=== PATIENT | female | born 1950 | race Caucasian/White ===

== ENCOUNTER 2024-07-16 10:07 | Inpatient (IN) | payer MEDICARE, MEDICAID, SELFPAY ==
[2024-07-16] VITALS (76 sets, daily range): BP systolic 95–136; BP diastolic 46–87; PULSE 52–78; RESP 15–39; TEMP 36.5–36.8; O2SAT 85–100
--- NOTE | 2024-07-16 | DI.RAD_ITS ---
Exam(s) XR PORTABLE CHEST AP EXAM: XR PORTABLE CHEST AP CLINICAL HISTORY: pneumonia TECHNIQUE: 2D digital imaging was performed of the chest. One image was obtained. An AP view was ob tained. COMPARISON: No exams were available for comparison FINDINGS: There is overlying monitoring equipment present. MEDIASTINUM: Normal. HEART: Mild cardiomegaly. PULMONARY VASCULATURE: There is pulmonary venous congestion. LUNGS: No focal consolidating infiltrates are present. PLEURAL SPACE: No pleural effusion or pneumothorax. BONE:Within normal limits for the patient's age. OTHER FINDINGS:Normal. IMPRESSION: 1. No focal consolidating infiltrates. 2. Mild cardiomegaly and pulmonary venous congestion. DATA REPOSITORY: RADIATION DOSE DELIVERED:
--- NOTE | 2024-07-16 11:14 | W.PM.HP.N ---
Date of service: 07/16/24 Time of Service: 11:14 Assessment and Plan Assessment and plan (1) Pneumonia: Status: Acute Assessment and plan: continue with vanc and zosyn. Recheck labs cbc/cmp/procalcitonin/esr/crp cxr will be ordered (2) Anemia: Status: Chronic Assessment and plan: stable (3) CVA (cerebral vascular accident): Status: Chronic Assessment and plan: history of cva. (4) CKD (chronic kidney disease): Status: Chronic Assessment and plan: renally dose meds (5) Troponin level elevated: Status: Acute Assessment and plan: recheck levels (6) Diabetes: Status: Chronic History of Present Illness History of Present Illness Chief Complaint: sob Narrative: This is a 74-year-old female with a known history of a CVA with significant morbidity who is currently living at a detention facility and [facility]. Nursing staff noted the patient was having increasing difficulty breathing as well as a fever and hypoxia. She was evaluated in the ED at formerly [facility] and was noted to have pneumonia. Over the ensuing few hours the patient was noted to have hide potentially requiring pressure support with Levophed. Considering of bed crisis the patient was transferred here for further evaluation and treatment. Per my discussion with the family they reiterates this history. They also state that the patient gets pur?ed food but there has been concern about aspiration. Patient's other medical issues include hemiplegia and hemiparesis, chronic kidney disease, chronic A-fib, hypertension, diastolic heart failure, dyslipidemia, urinary retention in the past, hypokalemia. In reviewing medical records from the outlying facility for 8 white count was 9.69 and H&H of 8.5 and 27, INR was 2.6 BUN was 68.5 with creatinine at 1.84, BUN to creatinine ratio 37 potassium was 6.1 flu AMB negative RSV negative COVID-negative. I do not see any radial graphic results. Review of Systems Unobtainable due to mental status PFSH All Active Problems (Updated 07/16/24 @ 11:25 by Kilo Sanchez MD) Diabetes (Chronic) Troponin level elevated (Acute) CKD (chronic kidney disease) (Chronic) CVA (cerebral vascular accident) (Chronic) Anemia (Chronic) Pneumonia (Acute) Social History Smoking risk assessment performed?: No Drug use: Never Substance use type: does not use Housing: fdc Do you feel safe at home: Yes Do you feel safe in your relationship?: Yes Exam Narrative Exam Narrative: Head eyes ears nose and throat: Significant drooping in the left side of her face with very poor dentition Respiratory: Bilateral wheeze with expiration as well as with crackles right greater than left Cardiovascular irregularly irregular no murmur rubs or gallops Abdomen: Soft nontender nondistended bowel sounds active Extremities: No sinus clubbing or edema in reviewing records from outlying institution she was noted to have a stage I decubitus ulcer. Psych: Patient does respond to yes or no questions as well as to verbal stimuli. Results Last Vital Signs Temp 36.6 C 07/16/24 09:00 Pulse 61 07/16/24 10:31 Resp 20 07/16/24 10:31 BP 115/57 L 07/16/24 10:31 Pulse Ox 96 07/16/24 10:31 Time Spent Time spent with Patient: 55-74 minutes Time was spent: preparing to see the patient(eg.review tests), obtaining and/or reviewing separately otained hiistory, ordering medications,tests, procedures, referring, communicating with other health foster care worker, indepentently interpreting results, counseling the patient and care coordination
[2024-07-16] MEDS: Norepinephrine in D5W 8 MG/250 ML BAG 6.563 MG IV (12:00)
[2024-07-16 12:09] LABS: Abs Immature Grans 0.04 10^3/uL (0.0-0.06); Absolute Basophil Count 0.06 10^3/uL (0.0-0.2); Absolute Eosinophil Count 0.23 10^3/uL (0.0-0.7); Absolute Monocyte Count 0.58 10^3/uL (0.1-0.8); Absolute Neutrophil Count 7.67 10^3/uL (1.2-6.7); Basophils % 0.6 %; Eosinophils % 2.5 %; HCT 29.4 % (36.0-46.0); HGB 8.8 g/dL (11.2-15.7); Immature Grans % 0.4 %; Lymphocytes % 7.5 %; MCH 28.4 pg (27.0-33.0); MCHC 29.9 % (32.0-36.0); MCV 95 fL (80-95); Monocytes % 6.3 %; Neutrophils % 82.7 %; Platelet Count 73 10^3/uL (130-400); RDW 17.2 % (11.7-14.6); RDW-SD 60.1 fL; WBC 9.28 10^3/uL (4.4-10.8)
[2024-07-16 12:12] LABS: ESR 23 mm/hr (0-30)
[2024-07-16 12:21] LABS: ALT 17 U/L (14-59); AST 23 U/L (15-37); Albumin 2.4 g/dL (3.4-5.0); Alkaline Phosphatase 83 U/L (46-116); Anion Gap 9.2 mmol/L (3-11); BUN 72 mg/dL (7-18); Bilirubin, Total 0.45 mg/dL (0.2-1.0); CO2 17.8 mmol/L (21.0-32.0); CREATININE 2.1 mg/dL (0.55-1.02); Calcium 8.9 mg/dL (8.5-10.1); Chloride 111 mmol/L (98-107); Estimated GFR 24.12 (mL/min/1.73m2); Glucose 121 mg/dL (74-106); Potassium 5.7 mmol/L (3.5-5.1); Sodium 138 mmol/L (136-145); Total Protein 6.3 g/dL (6.4-8.2)
[2024-07-16 12:28] LABS: Diff Comment PLT Morph Reviewed; MPV 11.4 fL (8.0-11.0); RBC Morphology Normal; Troponin I 291 ng/L (<or=51)
[2024-07-16] MEDS: Enoxaparin 30 MG/0.3 ML SYR SC (12:28)
[2024-07-16 12:31] LABS: Vancomycin, Random 15.4 ug/mL
--- NOTE | 2024-07-16 12:59 | SP_ITS ---
Date of service: 07/16/24 Time of Service: 12:10 Subjective Clinical (Bedside) Swallow Evaluation Speech Language Pathology Referred by: Dr Sanchez Referral Type: Clinical Swallow Evaluation Reason for Referral/HPI: Fariha Arteaga is a 74 yo female who lives in a [facility] care facility in [facility] who was admitted with hypoxia/fever appearing consistent with pneumonia. CXR from [facility] ED reports bilateral infiltrates, CXR completed this morning at [facility] reveals no focal consolidating infiltrates, mild cardiomegaly and pulmonary venous congestion. She presents with PMH significant for CVA approximately 20 years ago with residual aphasia, R hemiplegia, and dysphagia. Per family report this is Fariha's second pneumonia in the past year (last in December 2023) and there was concern prior to this admission for aspiration, with recommendation for MBSS. Family states, swallowing has been hard since the stroke but we think it might be getting worse with age. She is on a Puree/Mildly thick diet at baseline and usually does self-feed with modified utensils/cup. COMPUTER SYSTEMS SECURITY ADMINISTRATOR IMPRESSIONS & RECOMMENDATIONS: Fariha presented today as alert/oriented, answering questions with single words/short phrases, though deconditioned and requesting full feed assist. At time of evaluation she was tolerating nasal cannula with wet/gurgly breathing. She presents with acute on chronic oral pharyngeal dysphagia characterized by R facial droop/labial weakness, lingual discoordination and weakness, discoordinated A-P transport, delayed swallow initiation, and intermittent wet cough. Increased wet cough noted for initial trials though subsided with additional PO- question related to displacement of secretions. Cough strength varied. Overall Fariha is considered a very high risk for aspiration-related illness, especially in the setting of poor oral hygiene (very sparse dentition with evident decay). Anticipate baseline severe dysphagia is exacerbated by deconditioned status and increased respiratory demands. Risks can be mitigated with strict aspiration precautions and diet modifications as listed below. Should patient status/respiratory status decline, recommend low threshold for NPO. Consider MBSS to further assess swallow function as patient returns to baseline. FURTHER COMPUTER SYSTEMS SECURITY ADMINISTRATOR SERVICES: Patient to be followed while on unit. Upon Discharge, [facility] COMPUTER SYSTEMS SECURITY ADMINISTRATOR services recommended Diet Recommendations: SOLIDS:4-Pureed Solids LIQUIDS: 2-Mildly Thick Liquids - Use cup with handle (once pt able to hold) and straw MEDICATIONS: Crushed or whole (if small) in puree RISK MANAGEMENT: HOB bolt upright for all PO, remain upright at least 30 min after Elevate HOB 30 degrees in evening Oral hygiene before/after PO using friction toothbrush/swab on all oral structures as tolerated Level of Assistance/Supervision: 1:1 supervision and assistance with all PO SUBJECTIVE: Patient received alert/awake, lethargic, agreeable to evaluation. Tolerating nasal cannula Pain Reported? None Baseline Swallow Function: Family present at time of evaluation, stating she is on puree/thickened liquid at baseline. Drinks out of 'sippy cup with handle'. Pt reports she uses a straw in the cup. Family reports wet cough with PO is not new. PO Trials Assessed: Ice IDDSI 2 Mildly Thick Liquid IDDSI 4 Puree Solid Oral Mechanism Examination: Sparse lower dentition only- evidence of notably decay. Oral mucosa is dry. Cranial Nerve Assessment: CN V ? Trigeminal Did not assess NT CN VII- Facial Impaired labial strength/coordination/ROM IMPAIRED CN IX ? Glossopharyngeal Unable to view palate. No evidence of nasal secretions UNABLE TO ASSESS CN X ? Vagus Wet/weak voice IMPAIRED CX XII ? Hypoglossal Impaired lingual strength/coordination. ROM WFL IMPAIRED Oral Phase Findings: Anterior leakage from mouth R side - straw helps Difficulty with bolus manipulation Difficulty with a-p transport Mild lingual surface residue, clears with liquid wash though requires oral care for full clearance Pharyngeal Phase Findings: Delayed swallow initiation Reduced hyolaryngeal elevation/excursion Wet cough after swallow - occurred with initial trials then subsided ? ASSESSMENT: Further COMPUTER SYSTEMS SECURITY ADMINISTRATOR Services indicated. Patient to be followed while on unit. Recommendation at Discharge: COMPUTER SYSTEMS SECURITY ADMINISTRATOR Services at Senior Living Facility Suggested Referrals: N/A Recommended Procedures: Consider MBSS for assessment of swallow function in the setting of repeat pna Education Provided to: Patient, Family, Nursing Topics Addressed: Aspiration precautions, COMPUTER SYSTEMS SECURITY ADMINISTRATOR findings/recommendations/ POC PLAN: Frequency: 2-3x/week for 1-2 weeks Goals: [place] Goals: Patient will remain free from aspiration-related illness, malnutrition, and dehydration. Short Term Goals: Patient will tolerate Puree Diet and Mildly thick liquids without overt s/s aspiration across 2/2 visits. Patient will tolerate PO trials for consideration of diet upgrade without overt s/s aspiration across 2/2 visits. COMPUTER SYSTEMS SECURITY ADMINISTRATOR CPT Code: 06872 Clinical Swallowing Evaluation TOTAL TIME: 35 Minutes [id number]
[2024-07-16] MEDS: Lactated Ringers 500 ML 125 ML IV (13:28)
[2024-07-16] MEDS: VANCOMYCIN/WATER (PEG) 750 MG/150 ML BAG 150 MG IVPB (14:30)
[2024-07-16] MEDS: Miconazole 2% Topical Powder 85 GM BTL TP (21:03)
[2024-07-16 22:11] LABS: CRP, High Sensitivity >15.00 mg/L (See Note)
[2024-07-17] VITALS (34 sets, daily range): BP systolic 98–131; BP diastolic 47–74; PULSE 61–89; RESP 15–24; TEMP 36.6–36.7; O2SAT 89–97
[2024-07-17] MEDS: Normal Saline Flush 10 ML SYR IVP ×2 (02:04→15:28)
[2024-07-17 06:04] LABS: Abs Immature Grans 0.03 10^3/uL (0.0-0.06); Absolute Basophil Count 0.02 10^3/uL (0.0-0.2); Absolute Lymphocyte Count 0.85 10^3/uL (1.2-3.4); Absolute Neutrophil Count 3.86 10^3/uL (1.2-6.7); Basophils % 0.3 %; Eosinophils % 10.4 %; HGB 7.6 g/dL (11.2-15.7); Immature Grans % 0.5 %; Lymphocytes % 14.8 %; MCH 28.7 pg (27.0-33.0); MCHC 30.4 % (32.0-36.0); MCV 94 fL (80-95); MPV 13.2 fL (8.0-11.0); Monocytes % 6.9 %; Neutrophils % 67.1 %; RBC 2.65 10^6/uL (3.93-5.22); RDW 17.2 % (11.7-14.6); WBC 5.76 10^3/uL (4.4-10.8)
[2024-07-17 06:21] LABS: ALT 16 U/L (14-59); AST 18 U/L (15-37); Albumin 2.1 g/dL (3.4-5.0); Alkaline Phosphatase 64 U/L (46-116); Anion Gap 7.7 mmol/L (3-11); BUN 73 mg/dL (7-18); Bilirubin, Total 0.31 mg/dL (0.2-1.0); CO2 20.3 mmol/L (21.0-32.0); CREATININE 2.2 mg/dL (0.55-1.02); Calcium 8.7 mg/dL (8.5-10.1); Chloride 112 mmol/L (98-107); Estimated GFR 22.81 (mL/min/1.73m2); Glucose 80 mg/dL (74-106); Potassium 5.1 mmol/L (3.5-5.1); Sodium 140 mmol/L (136-145); Total Protein 5.5 g/dL (6.4-8.2)
[2024-07-17 06:35] LABS: Diff Comment Diff Reviewed; Hypochromasia 1+; Platelet Count 69 10^3/uL (130-400)
--- NOTE | 2024-07-17 09:43 | INITIAL_ITS ---
Date of service: 07/17/24 Time of Service: 09:44 Care Management Initial Assmt Initial Assessment Reason for Hospitalization: Pneumonia Functional Status/Living Situation Patient Presentation: Fariha was lying in bed when CM met with her. She was polite and agreeable to conversation, although a little difficult to understand. Fariha had a major stroke 23 years ago which left her with aphasia and right sided hemiplegia. Fariha informed CM that she lives in a single family home in [place], [place] with her [place]. She shared that she is not ambulatory but is able to transfer from bed to her wheelchair with a stand and pivot motion. She stated that she does not receive any services at home. When asked who helps her with her care she stated that her and children are her caregivers. Fariha does have extensive wounds on her buttocks, some of which have tunneling. A wound consult has been ordered. In actuality, Fariha lives at [facility] in [place], [place]. CM contacted her daughter Chrissy who confirmed that she has been living at [facility] since this past March. Prior to that she had been at home and had caregiver support while there. She became acutely ill in December and was treated at [facility]. From there Fariha went to [facility] and then to another SNF before moving to [place]. Chrissy stated that the family has been pleased with the care she has been receiving there. When CM asked Chrissy if she found Fariha confused, she confirmed that she has been since arriving at [facility]. At baseline she is alert and oriented although the family also has diffi culty understanding her at timed due the aphasia. Fariha was admitted with sepsis and pneumonia. She presented to [facility] but they did not have any beds available so she was transferred to [facility]. Today she stated that she prefers to be at [facility] which is closer to her family. CM explained that there are no tertiary care beds available and that transfer was unlikely as her medical issues can be adequately treated at [facility]. She stated that she understood. Clinically Fariha is slowly improving. Her vital signs are stable and she is maintaining her oxygen saturation at 95-97% on room air. Town of Residence: [place] Resides with: Other (SNF) Significant Other/Family: Out of area (Fariha and her family are from out of the area and live in [facility] Natural Supports: family Employment Status: Disabled Instrumental Activities of Daily Living (ADLs): Requires support with Dishes/food prep, Transportation and Other (ADLs) Medications Medication Management: No Issues/Barriers identified Physical Functioning/Mobility Assistive Device: wheelchair Advance Directives Advance Directives: Do you have an Advance Directive: Y 07/16/24 09:36 AD On File at [facility]: N 07/16/24 09:36 Date Asked 07/16/24 07/16/24 09:36 AD Date Reviewed COLST On File at [facility] COLST Date Scanned Code Status Resuscitation Status DNR/DNI Portal Pt does not currently have a portal and education provided: No Portal Education: Patient declined (not from [facility]) Insurance Coverage/Financial Issues Insurance: Medicare Medicaid Care Team Visit Care Team Role Provider Type Mariya Kenny Primary Care Provider NURSE PRACTITIONER Tara Pugh CARDROOM ATTENDANT Other Providers SPEECH LANGUAGE PATHOLOGIST Alycia Low Other Providers LUMBER CARRIER OPERATOR Graham Preciado, CARDROOM ATTENDANT Other Providers SPEECH LANGUAGE PATHOLOGIST Andreia Brewer Other Providers LUMBER CARRIER OPERATOR Jackie Archer Other Providers SPEECH LANGUAGE PATHOLOGIST Indiana Berger, CARDROOM ATTENDANT Other Providers SPEECH LANGUAGE PATHOLOGIST Christine Clancy Other Providers LUMBER CARRIER OPERATOR Silva Chao, CARDROOM ATTENDANT Other Providers SPEECH LANGUAGE PATHOLOGIST Payton Haro RN Other Providers LUMBER CARRIER OPERATOR Kilo Sanchez MD Admit Provider [facility] STAFF PHYSICIAN Attending Provider Discharge Potential Discharge Needs: Other (return to SNF) Anticipated Barriers to Discharge: None Identified Patient/Family Education Needs: Review discharge instructions, discuss Ask Me Three Transportation: EMS Plan: Anticipate Fariha will be discharged back to [facility] when medically cleared. She will follow up with the facility providers and plan of care and transport via EMS. CM will follow and continue to support discharge planning. Social Determinants of Health Screening Will the Patient Participate in the Screening?: Unable to obtain Do you worry about having a steady place to live?: no Problems where you live: no known problems In the past 12 months, have you had to go without electric, gas, oil or water in your home?: no Have you or anyone in your house had to go without enough food to eat?: no Has lack of transportation kept you from medical appointments or from doing things needed for daily living?: no Has anyone in your life made you feel unsafe or unsupported?: no How hard is it for you to pay for the very basics like food, housing, medical care, and heating? Would you say it is:: Not hard at all Do you want help finding or keeping work or a job?: I do not need or want help If for any reason you need help with day-to-day activities such as bathing, preparing meals, shopping, managing finances, etc., do you get the help you need?: I get all the help I need PFSH All Active Problems (Updated 07/17/24 @ 13:41 by Kilo Sanchez MD) Hyperkalemia (Acute) Dysphagia (Acute) Diabetes (Chronic) Troponin level elevated (Acute) CKD (chronic kidney disease) (Chronic) CVA (cerebral vascular accident) (Chronic) Anemia (Chronic) Pneumonia (Acute) Social History Smoking risk assessment performed?: No Drug use: Never Substance use type: does not use Housing: long term Do you feel safe at home: Yes Do you feel safe in your relationship?: Yes
[2024-07-17] MEDS: Enoxaparin 30 MG/0.3 ML SYR SC (12:43)
--- NOTE | 2024-07-17 13:03 | PGE_ITS ---
Date of Service Date of service: 07/17/24 Time of Service: 13:04 Assessment and Plan Assessment and plan (1) Pneumonia: Status: Acute Assessment and plan: continue with vanc and zosyn. Recheck labs cbc/cmp/procalcitonin/esr/crp cxr will be ordered 07/17/24 Pt remains on vanc/zosyn. WBC wnl and no recorded fever. Recheck labs in am (2) Anemia: Status: Chronic Assessment and plan: stable 07/17/24 Pt with a drop in her Hg from 8.8 to 7.6 over last 24 hours. No need for xfusion at this point but I will do hemcheck of stool as well as PPI. (3) CVA (cerebral vascular accident): Status: Chronic Assessment and plan: history of cva. Medical records indicate pt was on coumadin. When I called the SNF, the staff said Mrs Arteaga was not a pt there. Will reach out to Case Management to see if we can get some clarification. (4) CKD (chronic kidney disease): Status: Chronic Assessment and plan: renally dose meds (5) Troponin level elevated: Status: Acute Assessment and plan: recheck levels (6) Diabetes: Status: Chronic Assessment and plan: Pt on lantus 20units qpm per history. Will try to verify through SNF if possible (7) Dysphagia: Status: Acute Assessment and plan: Diet Recommendations: SOLIDS:4-Pureed Solids LIQUIDS: 2-Mildly Thick Liquids - Use cup with handle (once pt able to hold) and straw MEDICATIONS: Crushed or whole (if small) in puree RISK MANAGEMENT: HOB bolt upright for all PO, remain upright at least 30 min after Elevate HOB 30 degrees in evening Oral hygiene before/after PO using friction toothbrush/swab on all oral structures as tolerated Level of Assistance/Supervision: 1:1 supervision and assistance with all PO (8) Hyperkalemia: Status: Acute Assessment and plan: resolved Subjective Subjective Interval history since last seen: PT seen and examined in the am. NS asking for an order for faustino. POC d/w bedside nurse during ICU huddle Exam Narrative Exam Narrative: Head eyes ears nose and throat: Significant drooping in the right side of her face with very poor dentition Respiratory: Bilateral wheeze with expiration as well as with crackles right greater than left Cardiovascular irregularly irregular no murmur rubs or gallops Abdomen: Soft nontender nondistended bowel sounds active Extremities: No sinus clubbing or edema in reviewing records from outlying institution she was noted to have a stage I decubitus ulcer. Psych: Patient does respond to yes or no questions as well as to verbal stimuli. Objective Last Vital Signs Temp 36.6 C 07/17/24 04:01 Pulse 77 07/17/24 11:31 Resp 17 07/17/24 11:31 BP 128/66 07/17/24 11:01 Pulse Ox 89 L 07/17/24 11:31 Laboratory Results - last 24 hr 07/16/24 07/17/24 11:55 05:00 WBC 5.76 RBC 2.65 L Hgb 7.6 L Hct 25.0 L MCV 94 MCH 28.7 MCHC 30.4 L RDW 17.2 H Plt Count 69 L MPV 13.2 H Immature Gran % 0.5 Neutrophils % 67.1 Lymphocytes % 14.8 Monocytes % 6.9 Eosinophils % 10.4 Basophils % 0.3 Nucleated RBC % 0.0 Absolute Neutrophils 3.86 Absolute Lymphocytes 0.85 L Absolute Monocytes 0.40 Absolute Eosinophils 0.60 Absolute Basophils 0.02 RBC Morphology See Below Hypochromasia 1+ Sodium 140 Potassium 5.1 Chloride 112 H Carbon Dioxide 20.3 L Anion Gap 7.7 BUN 73 H Creatinine 2.2 H Est GFR (CKD-EPI 2020) 22.81 Glucose 80 Calcium 8.7 Total Bilirubin 0.31 AST 18 ALT 16 Alkaline Phosphatase 64 C-React Prot High Sens >15.00 Total Protein 5.5 L Albumin 2.1 L Time Spent with Patient Time Spent with Patient: 25-34 minutes Time was spent: preparing to see the patient(eg.review tests), obtaining and/or reviewing separately otained hiistory, ordering medications,tests, procedures, referring, communicating with other health healthcare management, indepentently interpreting results, counseling the patient and care coordination
[2024-07-17] MEDS: VANCOMYCIN/WATER (PEG) 750 MG/150 ML BAG 150 MG IVPB (15:10)
[2024-07-17] MEDS: Tamsulosin 0.4 MG CAPCR PO (21:12)
[2024-07-17] MEDS: Potassium Chloride 10 MEQ CAPCR 20 MEQ PO (21:12)
[2024-07-17] MEDS: Docusate Sodium 100 MG CAP PO (21:12)
[2024-07-17] MEDS: Carvedilol 3.125 MG TAB PO (21:12)
[2024-07-17] MEDS: Miconazole 2% Topical Powder 85 GM BTL TP (21:29)
[2024-07-17] MEDS: Albuterol/Ipratropium 3 ML UPD VIAL IH (21:30)
[2024-07-17] MEDS: Insulin Glargine 300 UNITS/3 ML PEN 20 UNITS SC (21:44)
--- NOTE | 2024-07-17 23:17 | W.PC.ACHO ---
Registration Status: Primary Language: Preferred Language: Most Recent Vital Signs Temperature 36.7 C 07/17/24 21:00 Temperature Source Temporal Artery Scan 07/17/24 21:00 Pulse 81 07/17/24 21:30 Pulse 78 07/17/24 21:30 Respiratory Rate 22 07/17/24 21:30 Respiratory Effort Normal, Non-Labored 07/16/24 09:00 Respiratory Depth Normal 07/16/24 09:00 Respiratory Pattern Normal 07/16/24 09:00 Blood Pressure 131/72 07/17/24 21:01 Blood Pressure Mean 89 07/17/24 21:01 Blood Pressure Position Supine 07/16/24 09:00 Pulse Oximetry 94 07/17/24 21:30 Oxygen Delivery Method Room Air 07/17/24 21:00 Oxygen Flow Rate 0 07/17/24 21:00 Pain Level 0 07/17/24 22:52 Comment Prior to my shift 07/17/24 06:02 Active Medications Generic Name Dose Route Start Last Admin Trade Name Freq PRN Reason Stop Dose Admin Albuterol/Ipratropium 3 ml 07/17/24 20:00 07/17/24 21:30 Albuterol/Ipratropium 3 Ml Upd Vial IH 3 ml TID PETER Administration Carvedilol 3.125 mg 07/17/24 20:00 07/17/24 21:12 Carvedilol 3.125 Mg Tab PO 3.125 mg BID PETER Administration Docusate Sodium 100 mg 07/16/24 10:07 07/17/24 21:12 Docusate Sodium 100 Mg Cap PO 100 mg TID PRN PRN Administration Enoxaparin Sodium 30 mg 07/16/24 12:00 07/17/24 12:43 Enoxaparin 30 Mg/0.3 Ml Syr SC 30 mg Q24H PETER Administration Piperacillin Sod/Tazobactam 100 mls @ 200 mls/hr 07/16/24 12:00 07/17/24 22:41 Sod 4.5 gm/ Dextrose/Water IVPB Infused Q8H PETER Infusion Vancomycin/PEG/NADA/Lysine/Water 750 mg in 150 mls @ 150 mls/hr 07/16/24 14:00 07/17/24 22:49 Vancocin Injection IVPB Infused Q24H PETER Infusion Insulin Glargine 20 units 07/17/24 20:00 07/17/24 21:44 Insulin Glargine 300 Units/3 Ml Pen SC 20 units QPM PETER Administration Miconazole Nitrate 0 gm 07/16/24 20:00 07/17/24 21:29 Miconazole 2% Topical Powder 85 Gm Btl TP 07/30/24 23:59 1 gm BID PETER Administration Potassium Chloride 20 meq 07/17/24 20:00 07/17/24 21:12 Potassium Chloride 10 Meq Capcr PO 20 meq BID PETER Administration Sodium Chloride 0 ml 07/16/24 23:29 07/17/24 15:28 Normal Saline Flush 10 Ml Syr IVP 10 ml PRN PRN Administration Tamsulosin HCl 0.4 mg 07/17/24 20:00 07/17/24 21:12 Tamsulosin 0.4 Mg Capcr PO 0.4 mg HS PETER Administration IV IV Catheter Type [Left Wrist] Peripheral IV IV Catheter Type [Left Hand] Saline Lock IV Catheter Type [Right Hand] Saline Lock IV Catheter Type [Right Wrist] Saline Lock IV Catheter Type [Left Saline Lock Antecubital] IV Catheter Gauge [Left Wrist] 18 IV Catheter Gauge [Left Hand] 20 IV Catheter Gauge [Right Hand] 20 IV Catheter Gauge [Right Wrist 18 ] IV Catheter Gauge [Left 18 Antecubital] Diagnostics 07/17/24 07/16/24 Range/Units 05:00 11:55 WBC 5.76 (4.4-10.8) 10^3/uL RBC 2.65 L (3.93-5.22) 10^6/uL Hgb 7.6 L (11.2-15.7) g/dL Hct 25.0 L (36.0-46.0) % MCV 94 (80-95) fL MCH 28.7 (27.0-33.0) pg MCHC 30.4 L (32.0-36.0) % RDW 17.2 H (11.7-14.6) % Plt Count 69 L (130-400) 10^3/uL MPV 13.2 H (8.0-11.0) fL Immature Gran % 0.5 % Neutrophils % 67.1 % Lymphocytes % 14.8 % Monocytes % 6.9 % Eosinophils % 10.4 % Basophils % 0.3 % Nucleated RBC % 0.0 (0.0-0.3) % Absolute Neutrophils 3.86 (1.2-6.7) 10^3/uL Absolute Lymphocytes 0.85 L (1.2-3.4) 10^3/uL Absolute Monocytes 0.40 (0.1-0.8) 10^3/uL Absolute Eosinophils 0.60 (0.0-0.7) 10^3/uL Absolute Basophils 0.02 (0.0-0.2) 10^3/uL RBC Morphology See Below Hypochromasia 1+ Sodium 140 (136-145) mmol/L Potassium 5.1 (3.5-5.1) mmol/L Chloride 112 H (98-107) mmol/L Carbon Dioxide 20.3 L (21.0-32.0) mmol/L Anion Gap 7.7 (3-11) mmol/L BUN 73 H (7-18) mg/dL Creatinine 2.2 H (0.55-1.02) mg/dL Est GFR (CKD-EPI 2020) 22.81 (mL/min/1.73m2) Glucose 80 (74-106) mg/dL Calcium 8.7 (8.5-10.1) mg/dL Total Bilirubin 0.31 (0.2-1.0) mg/dL AST 18 (15-37) U/L ALT 16 (14-59) U/L Alkaline Phosphatase 64 (46-116) U/L C-React Prot High Sens >15.00 (See Note) mg/L Total Protein 5.5 L (6.4-8.2) g/dL Albumin 2.1 L (3.4-5.0) g/dL 07/17/24 15:32 Urine Culture - Pending Urine - Cath Becerra Indwelling 07/17/24 14:25 Stl Occult Blood Screen Specimen 3 - Pending Stool [id number] Documentation Fingerstick Glucose Start: 07/17/24 21:35 Freq: Status: Active Protocol: Activity Type Activity Date Activity User E-sign Co-sign Detail Recorded Client Recorded Date Recorded By Document 07/17/24 21:24 BKG DAEMON(5) [id number] 07/17/24 21:35 BKG DAEMON(6) Intake and Output - 24 Hour Total 07/16/24 thru 07/17/24 22:49 Intake Total 1987.735 Output Total 550 Balance 1437.735 Weight 80.1 kg Intake: IV 1387.735 Oral 600 Output: Urine 550 Other: Urine Color Yellow Urine Appearance Cloudy Urine Odor Strong Comment Dry at this time Stool Occult Blood Negative Stool Size Small Stool Characteristics Formed Hard Brown Urinary Catheter Urinary Catheter Date of 07/17/24 Insertion [Urethral (Becerra)] Time of insertion [Urethral ( 14:45 Becerra)] Falls Risk Assessment Contributing Factors Unstable,Impairments 07/16/24 09:00 Tubes/Lines With any additional score 07/16/24 09:00 Gait Evaluation W/any additional score 07/16/24 09:00 Cognition Cognitive impairment 07/16/24 09:00 Fall Total Score 61 07/16/24 09:00 Level of Risk High Risk 07/16/24 09:00 Problems Hyperkalemia (Acute) Dysphagia (Acute) Diabetes (Chronic) Troponin level elevated (Acute) CKD (chronic kidney disease) (Chronic) CVA (cerebral vascular accident) (Chronic) Anemia (Chronic) Pneumonia (Acute) v v v v v v v v v Sending and/or Receiving Nurses: Please use comment section below to note any information pertinent to the patient hand-off not included above. Information / Comments: PNA/Sepsis. Prior CVA with right sided deficit. Insp/Exp wheezes t/o. On RA 94%. Pressure injuries to buttocks. Becerra. Report received from: Christine, all questions asked, answered.
[2024-07-18] VITALS (11 sets, daily range): BP systolic 122–136; BP diastolic 61–72; PULSE 69–82; RESP 5–20; TEMP 36–37.1; O2SAT 95–100
[2024-07-18 06:52] LABS: Abs Immature Grans 0.02 10^3/uL (0.0-0.06); Absolute Basophil Count 0.02 10^3/uL (0.0-0.2); Absolute Eosinophil Count 0.56 10^3/uL (0.0-0.7); Absolute Monocyte Count 0.41 10^3/uL (0.1-0.8); Absolute Neutrophil Count 2.77 10^3/uL (1.2-6.7); Basophils % 0.4 %; HCT 24.4 % (36.0-46.0); HGB 7.7 g/dL (11.2-15.7); Immature Grans % 0.4 %; Lymphocytes % 19.2 %; MCH 29.1 pg (27.0-33.0); MCHC 31.6 % (32.0-36.0); MCV 92 fL (80-95); Monocytes % 8.8 %; Neutrophils % 59.2 %; Platelet Count 75 10^3/uL (130-400); RBC 2.65 10^6/uL (3.93-5.22); RDW-SD 58.1 fL; WBC 4.68 10^3/uL (4.4-10.8)
[2024-07-18 07:29] LABS: ALT 17 U/L (14-59); AST 17 U/L (15-37); Albumin 2.1 g/dL (3.4-5.0); Alkaline Phosphatase 62 U/L (46-116); BUN 61 mg/dL (7-18); Bilirubin, Total 0.44 mg/dL (0.2-1.0); CREATININE 2.4 mg/dL (0.55-1.02); Calcium 8.5 mg/dL (8.5-10.1); Chloride 110 mmol/L (98-107); Estimated GFR 20.55 (mL/min/1.73m2); Glucose 63 mg/dL (74-106); Potassium 5.1 mmol/L (3.5-5.1); Sodium 140 mmol/L (136-145); Total Protein 5.8 g/dL (6.4-8.2)
[2024-07-18 07:33] LABS: Anisocytosis 1+; Diff Comment RBC Morph Reviewed
[2024-07-18 07:34] LABS: Polychromasia Present
[2024-07-18] MEDS: Albuterol/Ipratropium 3 ML UPD VIAL IH ×3 (08:45→20:21)
[2024-07-18] MEDS: Carvedilol 3.125 MG TAB PO ×2 (08:57→19:54)
[2024-07-18] MEDS: Furosemide 40 MG TAB PO (08:57)
[2024-07-18] MEDS: Amoxicillin 875/Clav. 125 TAB PO (08:57)
[2024-07-18] MEDS: Azithromycin 250 MG TAB 500 MG PO (08:57)
[2024-07-18] MEDS: Folic Acid 1 MG TAB PO (08:57)
[2024-07-18] MEDS: amLODIPine 10 MG TAB PO (08:57)
[2024-07-18] MEDS: Multivitamin TAB 1 TAB PO (08:58)
[2024-07-18] MEDS: Allopurinol 100 MG TAB PO (08:58)
[2024-07-18] MEDS: Cholecalciferol (Vitamin D3) 1,000 UNIT TAB 1000 UNITS PO (08:58)
[2024-07-18] MEDS: Lisinopril 5 MG TAB PO (08:58)
[2024-07-18] MEDS: Sertraline 25 MG TAB PO (08:58)
[2024-07-18] MEDS: Ascorbic Acid 500 MG TAB PO (08:58)
[2024-07-18] MEDS: Pantoprazole 40 MG TABCR PO (08:58)
[2024-07-18] MEDS: Miconazole 2% Topical Powder 85 GM BTL TP ×2 (09:14→19:55)
--- NOTE | 2024-07-18 10:09 | PDOC.CMPRO ---
Date of service: 07/18/24 Time of Service: 10:09 Social Determinants of Health Screening Will the Patient Participate in the Screening?: Unable to obtain Do you worry about having a steady place to live?: no Problems where you live: no known problems In the past 12 months, have you had to go without electric, gas, oil or water in your home?: no Have you or anyone in your house had to go without enough food to eat?: no Has lack of transportation kept you from medical appointments or from doing things needed for daily living?: no Has anyone in your life made you feel unsafe or unsupported?: no How hard is it for you to pay for the very basics like food, housing, medical care, and heating? Would you say it is:: Not hard at all Do you want help finding or keeping work or a job?: I do not need or want help If for any reason you need help with day-to-day activities such as bathing, preparing meals, shopping, managing finances, etc., do you get the help you need?: I get all the help I need
[2024-07-18] MEDS: Enoxaparin 30 MG/0.3 ML SYR SC (11:56)
--- NOTE | 2024-07-18 12:53 | SPP_ITS ---
Date of service: 07/18/24 Time of Service: 12:00 Subjective Fariha was contacted at bedside this date for lunch meal. STYRENE DEHYDRATION REACTOR OPERATOR assisting with meal, thickening liquids, proving oral care, etc. Fariha was alert and able to make 1-2 word requests, greetings, and thank you. throughout. Objective/Assessment/Plan Objective Treatment Techniques & Outcomes: Self-feeding behaviors: She was able to self-feed with moderate assistance (e.g., plate rotation, set-up assist, help with placing cup in hand, etc). Positioning: As upright as possible using bed-tilt controls. PO Trials Assessed: IDDSI 2 Mildly Thick Liquid IDDSI 4 Puree Solid Oral Phase Findings: Anterior leakage from mouth R side - straw helps Difficulty with bolus manipulation Difficulty with a-p transport Mild lingual surface residue, clears with liquid wash though requires oral care with suction for full clearance Pharyngeal Phase Findings: Delayed swallow initiation Reduced hyolaryngeal elevation/excursion No wet cough this date, but some wet breathing sounds, unlcear if this is differentiated from baseline/pna sx. Assessment Fariha demonstrates improvement in conditioning for self-feeding ability this date. Although she did not cough with PO intake during STYRENE DEHYDRATION REACTOR OPERATOR visit and voice remained clear throughout, she did have some wet breathing sounds and nursing reported some wet coughing with breakfast. It remains unclear if this is baseline respiratory symptoms (pneumonia) or if it could be s/sx prandial aspiration. Per prior STYRENE DEHYDRATION REACTOR OPERATOR note, family remarking that wet cough with PO intake is not a new symptom. Given suspicion of worsening chronic dysphagia and multiple pna hospitalizations this year, it may be beneficial for MBSS to be completed before discharge, to clarify need for thickened liquids as well as to inform future decision-making for the patient/family if repeat pneumonias continue. Recommendation at Discharge: STYRENE DEHYDRATION REACTOR OPERATOR Services at Detention Facility Recommended Procedures: MBSS prior to discharge if able ---- Diet Recommendations: SOLIDS:4-Pureed Solids LIQUIDS: 2-Mildly Thick Liquids - Use cup with handle (once pt able to hold) and straw MEDICATIONS: Crushed or whole (if small) in puree RISK MANAGEMENT: HOB bolt upright for all PO, remain upright at least 30 min after Elevate HOB 30 degrees in evening Alternate sip of liquid for every 2-3 bites puree. Oral hygiene before/after PO using suction toothbrush/swab on all oral structures as tolerated Level of Assistance/Supervision: 1:1 supervision and assistance with all PO Plan Plan: Frequency: 2-3x/week for 1-2 weeks Character Actress Goals: Patient will remain free from aspiration-related illness, malnutrition, and dehydration. Short Term Goals: Patient will tolerate Puree Diet and Mildly thick liquids without overt s/s aspiration across 2/2 visits. Patient will tolerate PO trials for consideration of diet upgrade without overt s/s aspiration across 2/2 visits.
--- NOTE | 2024-07-18 13:44 | W.PM.PROGNOT ---
Date of Service Date of service: 07/18/24 Time of Service: 13:44 Assessment and Plan Assessment and plan (1) Pneumonia: Status: Acute Assessment and plan: -As seen on chest x-ray at outside hospital, though no focal consolidations were seen on imaging upon arrival here at [facility] -Was on Vanco and Zosyn -Has since been transitioned to Augmentin and azithromycin p.o. for presumed aspiration (2) Anemia: Status: Chronic Assessment and plan: - Drop in hemoglobin noted on the morning of 07/07/2024 from 8.8-7.6 -Found to be 7.7 on the morning of 07/18/2024 -No signs of bleeding -Continue PPI (3) CVA (cerebral vascular accident): Status: Chronic Assessment and plan: -history of cva. -Medical records indicate pt was on coumadin. (4) CKD (chronic kidney disease): Status: Chronic Assessment and plan: -renally dose meds (5) Diabetes: Status: Chronic Assessment and plan: - Continue home long-acting insulin -Sliding scale insulin, carb consistent diet (6) Dysphagia: Status: Acute Assessment and plan: -Patient does have known history of dysphagia but was planning on doing modified barium swallow however, was unable to coordinate with radiology -Recommend follow-up modified barium swallow as outpatient Diet Recommendations: SOLIDS:4-Pureed Solids LIQUIDS: 2-Mildly Thick Liquids - Use cup with handle (once pt able to hold) and straw MEDICATIONS: Crushed or whole (if small) in puree RISK MANAGEMENT: HOB bolt upright for all PO, remain upright at least 30 min after Elevate HOB 30 degrees in evening Oral hygiene before/after PO using friction toothbrush/swab on all oral structures as tolerated Level of Assistance/Supervision: 1:1 supervision and assistance with all PO (7) Hyperkalemia: Status: Acute Assessment and plan: resolved Subjective Subjective Interval history since last seen: Patient able to state that she is doing well today and her breathing feels better. Otherwise she has no other complaints or concerns at this time. Exam Narrative Exam Narrative: Chronically ill-appearing older female laying in bed in no acute distress, awake, alert, oriented to person and place, heart regular rhythm, lungs coarse upper respiratory breath sounds, otherwise clear to auscultation, abdomen obese, but soft, nontender, nondistended, significant known baseline facial droop on the right, noted to have significantly poor mentation Objective Last Vital Signs Temp 96.8 F L 07/18/24 04:01 Pulse 78 07/18/24 08:45 Resp 16 07/18/24 08:45 BP 136/71 07/18/24 09:04 Pulse Ox 98 07/18/24 08:45 Laboratory Results - last 24 hr 07/18/24 06:23 WBC 4.68 RBC 2.65 L Hgb 7.7 L Hct 24.4 L MCV 92 MCH 29.1 MCHC 31.6 L RDW 17.0 H Plt Count 75 L MPV 12.0 H Immature Gran % 0.4 Neutrophils % 59.2 Lymphocytes % 19.2 Monocytes % 8.8 Eosinophils % 12.0 Basophils % 0.4 Nucleated RBC % 0.0 Absolute Neutrophils 2.77 Absolute Lymphocytes 0.90 L Absolute Monocytes 0.41 Absolute Eosinophils 0.56 Absolute Basophils 0.02 RBC Morphology See Below Polychromasia Present Anisocytosis 1+ Sodium 140 Potassium 5.1 Chloride 110 H Carbon Dioxide 20.0 L Anion Gap 10.0 BUN 61 H Creatinine 2.4 H Est GFR (CKD-EPI 2020) 20.55 Glucose 63 L Calcium 8.5 Total Bilirubin 0.44 AST 17 ALT 17 Alkaline Phosphatase 62 Total Protein 5.8 L Albumin 2.1 L Time Spent with Patient Time Spent with Patient: >50 minutes Time was spent: preparing to see the patient(eg.review tests), obtaining and/or reviewing separately otained hiistory, ordering medications,tests, procedures, referring, communicating with other health multi care technician, indepentently interpreting results, counseling the patient and care coordination
--- NOTE | 2024-07-18 15:06 | CMPROGNOTE_ITS ---
Date of service: 07/18/24 Time of Service: 15:06 Care Management Progress Note Progress Note Text Progress Note Text: Fariha was sitting up in bed when EMELINA met with her. She has been moved out of the ICU onto the medical-surgical unit. Her oxygen saturation has been in the mid to upper 90s on room air for the past 2 days. She is afebrile and her vital signs are stable. The provider had considered discharging her today however a swallow evaluation has been requested which could not be done today. EMELINA contacted [facility] to inform them of the plan for her to return tomorrow. EMELINA spoke with her skilled nursing case manager Kristen ext [phone]) who stated she will work on transportation. It is not certain [facility] will be able to accommodate the request for the swallow evaluation tomorrow, but her discharge is planned in either case. EMELINA informed Fariha that she would be returning to [facility] tomorrow and she smiled and seemed pleased with the news. Discharge Potential Discharge Needs: Other (return to SNF) Anticipated Barriers to Discharge: Treatment delay (discharge delayed by one day to do swallow eval) Patient/Family Education Needs: Review discharge instructions, discuss Ask Me Three Transportation: Facility Transport Plan: Anticipate Fariha will be discharged back to [facility] when medically cleared. She will follow up with the facility providers and plan of care and transport via facility vehicle.. CM will follow and continue to support discharge planning. Social Determinants of Health Screening Will the Patient Participate in the Screening?: Unable to obtain Do you worry about having a steady place to live?: no Problems where you live: no known problems In the past 12 months, have you had to go without electric, gas, oil or water in your home?: no Have you or anyone in your house had to go without enough food to eat?: no Has lack of transportation kept you from medical appointments or from doing things needed for daily living?: no Has anyone in your life made you feel unsafe or unsupported?: no How hard is it for you to pay for the very basics like food, housing, medical care, and heating? Would you say it is:: Not hard at all Do you want help finding or keeping work or a job?: I do not need or want help If for any reason you need help with day-to-day activities such as bathing, preparing meals, shopping, managing finances, etc., do you get the help you need?: I get all the help I need
[2024-07-18] MEDS: Insulin Glargine 300 UNITS/3 ML PEN 20 UNITS SC (19:53)
[2024-07-18] MEDS: Tamsulosin 0.4 MG CAPCR PO (19:54)
[2024-07-18] MEDS: Amoxicillin 500/Clav. 125 TAB PO (19:54)
[2024-07-18] MEDS: Potassium Chloride 10 MEQ CAPCR 20 MEQ PO (19:54)
[2024-07-18] MEDS: Normal Saline Flush 10 ML SYR IVP (19:54)
[2024-07-19 03:10] VITALS: BP 125/62; PULSE 82; RESP 18; TEMP 36.9; O2SAT 93
[2024-07-19 06:51] LABS: INR 1.5 (0.9-1.1)
[2024-07-19] MEDS: Pantoprazole 40 MG TABCR PO (07:47)
[2024-07-19] MEDS: Furosemide 40 MG TAB PO (07:47)
[2024-07-19] MEDS: Carvedilol 3.125 MG TAB PO ×2 (07:47→21:10)
[2024-07-19] MEDS: Cholecalciferol (Vitamin D3) 1,000 UNIT TAB 1000 UNITS PO (07:47)
[2024-07-19] MEDS: Sertraline 25 MG TAB PO (07:48)
[2024-07-19] MEDS: Ascorbic Acid 500 MG TAB PO (07:48)
[2024-07-19] MEDS: Amoxicillin 500/Clav. 125 TAB PO ×2 (07:48→21:10)
[2024-07-19] MEDS: amLODIPine 10 MG TAB PO (07:48)
[2024-07-19] MEDS: Lisinopril 5 MG TAB PO (07:48)
[2024-07-19] MEDS: Azithromycin 250 MG TAB PO (07:48)
[2024-07-19] MEDS: Allopurinol 100 MG TAB PO (07:48)
[2024-07-19] MEDS: Multivitamin TAB 1 TAB PO (07:48)
[2024-07-19] MEDS: Folic Acid 1 MG TAB PO (07:48)
[2024-07-19] MEDS: Potassium Chloride 10 MEQ CAPCR 20 MEQ PO ×2 (07:48→21:10)
[2024-07-19] MEDS: Normal Saline Flush 10 ML SYR IVP ×2 (07:49→21:10)
[2024-07-19] MEDS: Miconazole 2% Topical Powder 85 GM BTL TP ×2 (07:53→21:10)
[2024-07-19 08:17] VITALS: BP 128/52; PULSE 68; RESP 18; TEMP 36.6; O2SAT 99
[2024-07-19 08:59] VITALS: PULSE 83; RESP 9; O2SAT 97
[2024-07-19] MEDS: Albuterol/Ipratropium 3 ML UPD VIAL IH (08:59)
[2024-07-19] MEDS: Enoxaparin 30 MG/0.3 ML SYR SC (11:15)
--- NOTE | 2024-07-19 13:58 | CHAPLAIN ---
Fariha was in bed, looking like she was trying to sleep when I stopped in. I introduced myself and explained my role. Fariha said she was trying to rest, so I will plan to visit again later. According to Care Management notes, Fariha is from [facility], and her family lives in [place], [place]. She had a stroke 20 years ago and can be difficult to understand verbally as a result. She was living at home, and then moved to [facility] in March. She went to the ER at [facility] but no beds were available so she was transferred here.
--- NOTE | 2024-07-19 15:22 | PGE_ITS ---
Date of Service Date of service: 07/19/24 Time of Service: 15:22 Assessment and Plan Assessment and plan (1) Pneumonia: Status: Acute Assessment and plan: -As seen on chest x-ray at outside hospital, though no focal consolidations were seen on imaging upon arrival here at [facility] -Was on Vanco and Zosyn -Has since been transitioned to Augmentin and azithromycin p.o. for presumed aspiration (2) Anemia: Status: Chronic Assessment and plan: - Drop in hemoglobin noted on the morning of 07/07/2024 from 8.8-7.6 -Found to be 7.7 on the morning of 07/18/2024 -No signs of bleeding -Continue PPI (3) CVA (cerebral vascular accident): Status: Chronic Assessment and plan: -history of cva. -Medical records indicate pt was on coumadin. (4) CKD (chronic kidney disease): Status: Chronic Assessment and plan: -renally dose meds (5) Diabetes: Status: Chronic Assessment and plan: - Continue home long-acting insulin -Sliding scale insulin, carb consistent diet (6) Dysphagia: Status: Acute Assessment and plan: -Patient does have known history of dysphagia but was planning on doing modified barium swallow however, was unable to coordinate with radiology -Recommend follow-up modified barium swallow as outpatient Diet Recommendations: SOLIDS:4-Pureed Solids LIQUIDS: 2-Mildly Thick Liquids - Use cup with handle (once pt able to hold) and straw MEDICATIONS: Crushed or whole (if small) in puree RISK MANAGEMENT: HOB bolt upright for all PO, remain upright at least 30 min after Elevate HOB 30 degrees in evening Oral hygiene before/after PO using friction toothbrush/swab on all oral structures as tolerated Level of Assistance/Supervision: 1:1 supervision and assistance with all PO (7) Hyperkalemia: Status: Acute Assessment and plan: resolved Subjective Subjective Interval history since last seen: Patient states that she is doing well today and understands that she will go back to her long-term residential tommorrow 07/20. Exam Narrative Exam Narrative: Chronically ill-appearing older female laying in bed in no acute distress, awake, alert, oriented to person and place, heart regular rhythm, lungs coarse upper respiratory breath sounds, otherwise clear to auscultation, abdomen obese, but soft, nontender, nondistended, significant known baseline facial droop on the right, noted to have significantly poor mentation Objective Last Vital Signs Temp 97.9 F 07/19/24 08:17 Pulse 83 07/19/24 08:59 Resp 18 07/19/24 08:17 BP 128/52 L 07/19/24 08:17 Pulse Ox 97 07/19/24 08:59 Laboratory Results - last 24 hr 07/19/24 06:15 PT 15.0 H INR 1.5 H Time Spent with Patient Time Spent with Patient: >50 minutes Time was spent: preparing to see the patient(eg.review tests), obtaining and/or reviewing separately otained hiistory, ordering medications,tests, procedures, referring, communicating with other health dog daycare provider, indepentently interpreting results, counseling the patient and care coordination
[2024-07-19 15:59] VITALS: BP 123/63; PULSE 65; RESP 18; TEMP 36.5; O2SAT 95
--- NOTE | 2024-07-19 17:52 | CMPROGNOTE_ITS ---
Date of service: 07/19/24 Time of Service: 17:52 Care Management Progress Note Progress Note Text Progress Note Text: Fariha was sleeping when CM attempted to visit with her today. Per MD, she is medically cleared and ready for discharge. CM contacted [facility] multiple times, and was not able to reach someone until mid afternoon. At that time, their web operations administrator asked that she be held overnight and discharged tomorrow morning. [facility] has arranged for their facility van with a stretcher to transport her home at 10:30am. MD and RN were informed; MD will discharge early in order to accommodate the discharge. CM will continue to follow. Discharge Potential Discharge Needs: Other (coordinated return to SNF) Anticipated Barriers to Discharge: Bed availability Patient/Family Education Needs: Review discharge instructions, discuss Ask Me Three Transportation: Facility Transport Plan: Anticipate Fariha will be discharged back to [facility] when medically cleared. She will follow up with the facility providers and plan of care and transport via facility vehicle. CM will follow and continue to support discharge planning. Social Determinants of Health Screening Will the Patient Participate in the Screening?: Unable to obtain Do you worry about having a steady place to live?: no Problems where you live: no known problems In the past 12 months, have you had to go without electric, gas, oil or water in your home?: no Have you or anyone in your house had to go without enough food to eat?: no Has lack of transportation kept you from medical appointments or from doing things needed for daily living?: no Has anyone in your life made you feel unsafe or unsupported?: no How hard is it for you to pay for the very basics like food, housing, medical care, and heating? Would you say it is:: Not hard at all Do you want help finding or keeping work or a job?: I do not need or want help If for any reason you need help with day-to-day activities such as bathing, preparing meals, shopping, managing finances, etc., do you get the help you need?: I get all the help I need
[2024-07-19] MEDS: Tamsulosin 0.4 MG CAPCR PO (21:10)
[2024-07-19] MEDS: Insulin Glargine 300 UNITS/3 ML PEN 20 UNITS SC (21:11)
[2024-07-20 05:33] VITALS: BP 135/81; PULSE 69; RESP 16; TEMP 36.2; O2SAT 93
[2024-07-20] MEDS: Sertraline 25 MG TAB PO (09:26)
[2024-07-20] MEDS: Multivitamin TAB 1 TAB PO (09:26)
[2024-07-20] MEDS: Carvedilol 3.125 MG TAB PO (09:26)
[2024-07-20] MEDS: Lisinopril 5 MG TAB PO (09:27)
[2024-07-20] MEDS: Cholecalciferol (Vitamin D3) 1,000 UNIT TAB 1000 UNITS PO (09:27)
[2024-07-20] MEDS: Azithromycin 250 MG TAB PO (09:27)
[2024-07-20] MEDS: Potassium Chloride 10 MEQ CAPCR 20 MEQ PO (09:27)
[2024-07-20] MEDS: Furosemide 40 MG TAB PO (09:27)
[2024-07-20] MEDS: Amoxicillin 500/Clav. 125 TAB PO (09:27)
[2024-07-20] MEDS: Normal Saline Flush 10 ML SYR IVP (09:28)
[2024-07-20] MEDS: amLODIPine 10 MG TAB PO (09:28)
[2024-07-20] MEDS: Allopurinol 100 MG TAB PO (09:28)
[2024-07-20] MEDS: Pantoprazole 40 MG TABCR PO (09:28)
[2024-07-20] MEDS: Folic Acid 1 MG TAB PO (09:28)
[2024-07-20] MEDS: Ascorbic Acid 500 MG TAB PO (09:28)
--- NOTE | 2024-07-20 09:28 | DSE_ITS ---
Date of service: 07/20/24 Time of Service: 09:28 DS: Diagnosis Discharge Diagnosis (1) Pneumonia: Status: Acute (2) Anemia: Status: Chronic (3) CVA (cerebral vascular accident): Status: Chronic (4) CKD (chronic kidney disease): Status: Chronic (5) Diabetes: Status: Chronic (6) Dysphagia: Status: Acute (7) Hyperkalemia: Status: Acute Discharge Plan Disposition [facility] Condition: Good Discharge Details Reason For Visit: Pneumonia Admit Date/Time: 07/16/24 10:07 Admit Provider: Kilo Sanchez Attending Provider: Kilo Sanchez Primary Care Provider: Mariya [facility] Course Hospital Course: Patient initially presented from outside hospital with shortness of breath, fever and hypoxia and was found to have aspiration pneumonia. She was initially treated with zanc and zosyn which was subsequently changed to PO Augmentin and azithromycin with continued improvement and subsequent weaning off of supplemental oxygen. Given that the patient has return to her baseline it was determined that she was stable fo discharge. Home Meds and New Rx's Prescriptions: New azithromycin 250 mg Tablet 250 mg PO DAILY 5 Days Qty: 5 0RF amoxicillin-pot clavulanate 500-125 mg Tablet 1 tab PO BID 5 Days Qty: 10 0RF Continued acetaminophen 650 mg suppository 650 mg UT Q4H Patient Comments: as needed for fever acetaminophen 325 mg tablet 325 mg PO Q4H PRN allopurinol 100 mg tablet 100 mg PO DAILY amlodipine 10 mg tablet 10 mg PO DAILY carvedilol 3.125 mg tablet 3.125 mg PO BID Rx Instructions: must administer with a meal/food colesevelam 625 mg tablet 1,875 mg PO BID ipratropium-albuterol 0.5 mg-3 mg(2.5 mg base)/3 mL solution for nebulization 3 ml inhalation TID Enema 19-7 gram/118 mL enema 118 ml UT DAILY PRN folic acid 1 mg tablet 1 mg PO DAILY insulin glargine 100 unit/mL (3 mL) insulin pen 20 unit subcut QPM furosemide [Lasix] 40 mg tablet 40 mg PO QAM lisinopril 5 mg tablet 5 mg PO DAILY magnesium hydroxide [Milk of Magnesia] 400 mg/5 mL suspension 30 ml PO DAILY PRN (Reason: constipation) multivitamin [Daily Multi-Vitamin] Tablet 1 tab PO DAILY pentoxifylline 400 mg tablet extended release 400 mg PO DAILY AM Rx Instructions: must administer with a meal/food potassium chloride 10 mEq capsule, extended release 20 meq PO BID senna 8.6 mg capsule 17.2 mg PO DAILY PRN (Reason: constipation) sertraline 25 mg tablet 25 mg PO DAILY AM tamsulosin [Flomax] 0.4 mg capsule 0.4 mg PO QHS ascorbic acid (vitamin C) [C-500] 500 mg tablet 500 mg PO DAILY cholecalciferol (vitamin D3) [Vitamin D3] 25 mcg (1,000 unit) tablet 1,000 unit PO QDAY warfarin 1 mg tablet 1.5 mg PO QPM ondansetron HCl 4 mg tablet 4 mg PO Q6H PRN (Reason: nausea / vomiting) Discharge Instructions Activity:: Activity as Tolerated Equipment/Supplies:: No Equipment Needed Diet:: As Tolerated Discharge Orders Discharge Orders: Discharge Order (Routine); Ordered 07/20/24 Ordered By: William Hernandez DS: Summary Time Spent with Patient providing and/or coordinating discharge services: Greater than 30 minutes Status at Discharge Functional status at discharge: independent ambulation Overall status at discharge: patient is back to baseline Mental Status: mental status grossly normal Speech and Movement: speech and movement normal Mood: congruent mood Affect: normal affect Quality:SDOH Health Related Social Needs: No Data to Display Exam Narrative Exam Narrative: Chronically ill-appearing older female laying in bed in no acute distress, awake, alert, oriented to person and place, heart regular rhythm, lungs coarse upper respiratory breath sounds, otherwise clear to auscultation, abdomen obese, but soft, nontender, nondistended, significant known baseline facial droop on the right, noted to have significantly poor mentation Psych Mental Status: mental status grossly normal Speech and Movement: speech and movement normal Mood: congruent mood Affect: normal affect DS: Data Vitals/I&O Vitals and I&O: Vital Signs Temperature 97.2 F L 07/20/24 05:33 Temperature Source Tympanic 07/20/24 05:33 Pulse 69 07/20/24 05:33 Pulse 78 07/17/24 21:30 Respiratory Rate 16 07/20/24 05:33 Respiratory Effort Normal, Non-Labored 07/16/24 09:00 Respiratory Depth Normal 07/16/24 09:00 Respiratory Pattern Normal 07/16/24 09:00 Blood Pressure 135/81 07/20/24 05:33 Blood Pressure Mean 89 07/17/24 21:01 Blood Pressure Position Supine 07/16/24 09:00 Pulse Oximetry 93 07/20/24 05:33 Oxygen Delivery Method Room Air 07/20/24 05:33 Oxygen Flow Rate 0 07/20/24 05:33 Pain Level 0 07/20/24 09:00 Comment Prior to my shift 07/17/24 06:02 Intake & Output 07/19/24 07/20/24 07/20/24 17:59 05:59 17:59 Intake Total 740 / 740 10 / 750 Output Total 650 / 650 1750 / 2400 Balance 90 / 90 -1740 / -1650 Weight 174 lb 2.643 oz 171 lb 4.787 oz Intake: IV 10 10 Oral 740 / 740 Output: Urine 650 / 650 1750 / 2400 Other: Urine Color Yellow Yellow Urine Appearance Clear Clear PFSH All Active Problems (Updated 07/20/24 @ 09:28 by William Hernandez MD) Hyperkalemia (Acute) Dysphagia (Acute) Diabetes (Chronic) Troponin level elevated (Acute) CKD (chronic kidney disease) (Chronic) CVA (cerebral vascular accident) (Chronic) Anemia (Chronic) Pneumonia (Acute) Social History Smoking/Tobacco Use Status: Never Smoking risk assessment performed?: Yes Drug use: Never Substance use type: does not use Housing: fpc Do you feel safe at home: Yes Do you feel safe in your relationship?: Yes Time Spent with Patient Time Spent with Patient: <45 minutes Time was spent: preparing to see the patient(eg.review tests), obtaining and/or reviewing separately otained hiistory, ordering medications,tests, procedures, r eferring, communicating with other health intensive care medicine specialist, indepentently interpreting results, counseling the patient and care coordination
--- NOTE | 2024-07-20 09:50 | CMDISCH_ITS ---
Date of service: 07/20/24 Time of Service: 09:50 LACE Index Scoring Tool Questions: Length of Stay (in days): 4 - 6 Was the patient admitted via the E.D.?: Yes Comorbidities: Cerebrovascular Disease, Diabetes w/o Complication and Liver or Renal Disease E.D. Visits: 1 Answers: Total Score: 13 Risk of Readmission: High Risk Care Management Discharge Plan Reason for Hospitalization: Pneumonia Discharge Plan: Fariha will be discharged back to [facility]. She will follow up with the facility providers and plan of care and transport via facility van. Patient/Family Education Needs: Review discharge instructions, limitations, discuss Ask Me Three Services Needed at Discharge: [facility] Facility SDOH Health Related Social Needs: No Data to Display
[2024-07-20 11:49] VITALS: BP 142/69; PULSE 65; RESP 16; TEMP 36.4; O2SAT 96
== END 2024-07-20 11:45 | disposition skilled nursing facility (03) | DRG 178 ==
LOC: ICU 07-17 15:40 → MS 07-17 21:56
PROVIDERS: Admitting Provider Hospitalist; PCP Nurse Practitioner; Responsible Provider Family Medicine; Visit Provider Hospitalist
DX: J69.0 Pneumonitis due to inhalation of food and vomit (principal); I13.0 Hypertensive heart and chronic kidney disease with heart failure and stage 1 through stage 4 chronic kidney disease, or unspecified chronic kidney disease; I48.20 Chronic atrial fibrillation, unspecified; I50.30 Unspecified diastolic (congestive) heart failure; I69.351 Hemiplegia and hemiparesis following cerebral infarction affecting right dominant side; N18.9 Chronic kidney disease, unspecified; D64.9 Anemia, unspecified; E11.22 Type 2 diabetes mellitus with diabetic chronic kidney disease; E87.5 Hyperkalemia; R13.10 Dysphagia, unspecified; R74.8 Abnormal levels of other serum enzymes; R09.02 Hypoxemia; E78.5 Hyperlipidemia, unspecified; I69.320 Aphasia following cerebral infarction; Z79.4 Long term (current) use of insulin
CPT/HCPCS: 00123; 36415; 80053; 85652; 86141; 92526; 92610; 71045; 80202; 82270; 84484; 85025; 85610; 87086; 94640; 94760; 99223; 99232; 99233; 99239; J1650; J1815; J2543; J3372; J7620

== ENCOUNTER 2024-10-10 02:11 | Outpatient (CLI) | payer MEDICARE, MEDICAID, SELFPAY ==
--- NOTE | 2024-10-10 | DI.RAD_ITS ---
Exam(s) RF MODIFIED SPEECH BA SWALLOW TECHNIQUE: Modified barium swallow was performed in conjunction with speech pathology. CONTRAST MATERIAL: Oral barium Oral water soluble contrast was administered. COMPARISON: No exams were available for comparison FINDINGS: Note that this is not a dedicated esophagram, distal esophagus not evaluated. The examination was performed with thin and thick barium, barium pudding and a barium coated cracker. There was aspiration noted during the examination with thin liquids. Speech pathology report to [facility]. . . . IMPRESSION: Aspiration was noted during the examination with thin liquids. RADIATION DOSE DELIVERED: bhavani De La Torre=19.3 mGy
--- NOTE | 2024-10-10 14:54 | ST.MBS ---
Date of Service Date of service: 10/10/24 Time of Service: 14:55 Modified Barium Swallow Study Findings: Video fluoroscopic Swallowing Evaluation (VFSE) / Modified Barium Swallow Study (MBSS) Speech Language Pathology Report Patient referred for VFSE/MBSS from Mariya Kenny given [employer] recommendations for outpatient MBSS during recent hospital admission. HPI & Patient report of function: Patient is a 74 year old F with history of dysphagia, CVA, CKD, Diabetes, and Hyperkalemia, with recent hospital admissions for pneumonia in the past year. Patient was admitted to [facility] earlier this year for aspiration pneumonia and at that time was recommended a modified diet of Pureed Solids and Mildly thick liquids with additional strict aspiration precautions in place. MBSS was recommended at that time but radiology was unable to accommodate before discharge, so she returns for outpatient MBSS at [facility] to clarify need for thickened liquids and inform future decision-making in light of repeat pneumonias. Given extreme delays/absence of swallow initiation even with purees/solids, recommend minced/moist solids to minimize choking risk from potential unswallowed solid bolus pharyngeal stasis. IMPRESSIONS: Swallow safety is impaired; swallow efficiency is impaired. Severe chronic oropharyngeal dysphagia. Patient appears to be at high risk for potential aspiration PNA and/or pulmonary compromise and low risk for malnutrition, mild risk for dehydration. Characterized primarily by poor oral-motor control especially for liquid bolus resulting in both posterior and anterior bolus loss for liquids, and significantly delayed pharyngeal onset resulting in penetration/aspiration of thin liquids before/during the swallow. Aspiration does not elicit a naturalistic cough response and cued attempts to clear aspiration/penetration are unsuccessful. Due to positioning/anatomical barriers, it was difficulty to visualize UES distension and esophageal phase. Diet modification is indicated; non-oral nutrition is not indicated. Swallow prognosis is guarded given: Age, Severity, Time since onset and pending patient/caregiver training in risk management as outlined, including use of trialed compensatory strategies. RECOMMENDATIONS: Diet Texture Recommendation:? IDDSI LEVEL SOLIDS 5-Minced & Moist Solids LIQUIDS 2-Mildly Thick Liquids Please see further details at?[email or web address] MEDICATIONS Whole with 4-Puree Diet texture modification is per patient's preference; please adjust diet textures at patient's discretion & collaboration with care team. Do not alter medications (e.g., cut)? without advice from your MD or pharmacist. Risk Management Strategies:? Small bites, approx [id number] Small sips, approx 10 mL Encourage avoidance of straws Ensure swallow initiation and cue as needed for delayed/absent swallow. Multiple swallows per bolus to encourage clearance of pharyngeal stasis/residue Control risk factors for aspiration pneumonia via (a) thorough oral hygiene & (b) maintaining physical mobility as tolerated PLAN: Therapy: May consider the following: Further Compensatory Strategy Training, Consider therapeutic freewater trials between meals for hydration with good oral care if able to work with [employer] at patient's residence. Goals: Defer to treating clinician ----- OBJECTIVE Videofluoroscopic Swallow Evaluation (VFSE/MBSS) was conducted in the lateral projection by Speech-Language Pathologist, in collaboration with Radiologist, to evaluate oropharyngeal swallow function. Anatomic view under fluoroscopy: WFL PO Barium Contrast Trials Oral barium water-soluble contrast was administered as follows: IDDSI Level 0 Varibar thin liquid (40% w/v) IDDSI Level 2 Varibar nectar thick/mildly thick liquid (40% w/v) IDDSI Level 4 Varibar pudding/pureed/extremely thick (40% w/v) IDDSI Level 7 Regular Solid: 1/2 suresh cracker coated in 3 mL Varibar pudding 13 mm barium tablet taken with Puree MBSImP Component Scores: COMPONENT Scale SCORE 1 Lip closure (0-4) 2 Resulted in escape from interlabial space or lateral juncture, but no extension beyond vermilion border 2 Hold Position (0-3) 3 Allowed posterior escape of greater than half of the bolus 3 Bolus Preparation (0-4) 2 Demonstrated disorganized chewing/mashing with solid pieces of bolus unchewed 4 Bolus Transport (0-4) 3 Was with repetitive/disorganized motion of the tongue 5 Oral Residue (0-4) 2 Was a collection on oral structures 6 Swallow Initiation (0-4) 3 Occurred when the bolus head was in the pyriform sinuses 7 Soft Palate Elevation (0-4) 1 Allowed a trace column of contrast or air between soft palate and pharyngeal wall 8 Laryngeal Elevation (0-3) 1 Was decreased with partial superior movement of thyroid cartilage/partial approximation of arytenoids to epiglottic petiole 9 Anterior Hyoid Motion (0-2) 0 Demonstrated complete anterior movement 10 Epiglottic Movement (0-2) 0 Resulted in complete inversion 11 Laryngeal Closure (0-2) 1 Was incomplete with narrow a column of air/contrast in laryngeal vestibule 12 Pharyngeal Stripping Wave (0-2) 0 Was present and complete 13 Pharyngeal Contraction (0-3) NA 14 PES Opening (0-3) NA 15 Tongue Base Retraction (0-4) 2 Allowed a narrow column of contrast or air between the retracted tongue base and the posterior pharyngeal wall 16 Pharyngeal Residue (0-4) 2 Was a collection of residue within or on pharyngeal structures 17 Esophageal Clearance (0-4) NA Results: COMPONENT Scale SCORE 1 Oral Score (0-18) 13 2 Pharyngeal Score (0-29) 7 3 Esophageal Score (0-4) 0 Penetration-Aspiration Scale: COMPONENT Scale SCORE 1 Thin liquid (1-8) 8 Contrast entered the airway, passed below the vocal folds, and no effort was made to eject. 2 [place] thick (1-8) 1 Contrast did not enter the airway 3 Honey thick (1-8) NA 4 Pudding thick (1-8) 1 Contrast did not enter the airway 5 Cookie (1-8) 1 Contrast did not enter the airway Trialed Compensatory Strategies & Outcome: Maneuvers Successful (+) Unsuccessful (-) Postures Successful (+) Unsuccessful (-) 3 second Preparatory Set? ?+/- Chin Tuck Posture? ? Cough? ? Posterior Head tilt? Reflexive? Cued? -? ? ? Throat Clear? ? Head Tilt to? Reflexive? Left? Cued? ?- ? Right? ? Saliva swallow? +? Head Turn/Rotate to? ? Supraglottic Swallow? Left? ? Super-supraglottic Swallow? Right? ? Bolus Modifications Successful (+) Unsuccessful (-) Delivery/Alternating Consistencies ? Follow with Liquid Wash ? Follow with Solid Bolus? Delivery/Via Straw? ?- Reduced Volume? ?+ Reduced Rate of Intake? ?+ Increased Viscosity? ?+ Other:?? ? Thank you for allowing us to take part in this patient's care. Please feel free to contact the [facility] Speech Language Pathology Department with any questions/concerns.
[2024-10-10] MEDS: Barium Sulfate 700 MG TAB PO (15:22)
[2024-10-10] MEDS: Barium Sulfate 40% W/V 240 ML BTL PO (15:23)
[2024-10-10] MEDS: Barium Sulfate Oral Paste 40% W/V 230 ML TUBE PO (15:25)
[2024-10-10] MEDS: Barium Sulfate 81% w/w for Oral Suspension 148 GM BTL PO (15:26)
== END 2024-10-10 02:31 ==
LOC: DI 02:11
PROVIDERS: PCP Nurse Practitioner; Visit Provider Nurse Practitioner
DX: I51.7 Cardiomegaly (principal)
CPT/HCPCS: 92526; 74221